=== PATIENT | female | born 1965 | race Caucasian/White ===

== ENCOUNTER 2019-05-23 09:30 | Day surgery (SDC) | payer OTHER ==
[2019-05-23] MEDS ORDERED: MIDAZOLAM 1 MG/ML 2 ML INJ ×2 (12:21)
[2019-05-23] MEDS ORDERED: FENTAnyl 50 MCG/ML VIAL (12:21)
== END 2019-05-23 14:03 | disposition home or self-care (01) ==
LOC: GIL 09:30
DX: R19.4 Change in bowel habit (principal); D12.1 Benign neoplasm of appendix; I10 Essential (primary) hypertension
CPT/HCPCS: 45380; 88305